=== PATIENT | male | born 1970 | race Caucasian/White ===

== ENCOUNTER 2021-02-27 11:07 | Observation (INO) | payer MEDICARE, OTHER ==
[~2021-02-27] VITALS: Ht 177.8 cm; Wt 79.4 kg
[2021-02-27 13:35] LABS: HEMOGLOBIN 11.1 gm/dl (14.0-17.5); RED BLOOD COUNT 3.57 M/UL (4.20-5.50); WHITE BLOOD COUNT 5.4 K/UL (4.5-11.0)
[2021-02-27] MEDS ORDERED: FOLIC ACID 1 MG1 MG PO (19:09)
[2021-02-27] MEDS ORDERED: KLONOPIN TAB 00.5 MG PO (19:09)
[2021-02-27] MEDS ORDERED: PROBIOTIC1 EAC2 PO (19:10)
[2021-02-27] MEDS ORDERED: BYDUREON INJ (19:12)
[2021-02-27] MEDS ORDERED: MAG-OX 400 TAB400 MG PO (19:12)
[2021-02-27] MEDS ORDERED: MINOCIN CAPSULE50 MG PO (19:13)
[2021-02-27] MEDS ORDERED: TAB-A-VITE TA400 MC1 PO (19:14)
[2021-02-27] MEDS ORDERED: CRESTOR10 MG PO (19:14)
[2021-02-27] MEDS ORDERED: TOVIAZ4 MG PO (19:15)
[2021-02-27] MEDS ORDERED: DOCUSATE SODIU100 MG PO (19:15)
[2021-02-27] MEDS ORDERED: AMLODIPINE BESY10 MG PO (19:15)
[2021-02-27] MEDS ORDERED: GLUCOPHAGE500 MG PO (19:16)
[2021-02-27] MEDS ORDERED: BENICAR40 MG PO (19:17)
[2021-02-27] MEDS ORDERED: ZETIA10 MG PO (19:18)
[2021-02-27] MEDS ORDERED: SYNTHROID100 MCG PO (19:18)
[2021-02-27] MEDS ORDERED: BENZTROPINE ME0.5 MG PO (19:18)
[2021-02-27] MEDS ORDERED: RISPERDAL2 MG PO (19:19)
[2021-02-27] MEDS ORDERED: NOVOLOG FL100 UNIT/1 INJ (19:19)
[2021-02-27] MEDS ORDERED: FERROUS SULFAT325 M2 PO (19:20)
[2021-02-27] MEDS ORDERED: CYANOCOBAL1000 MCG/1 SC (19:20)
[2021-02-28] MEDS ORDERED: KLONOPIN0.5 MG PO (04:50)
[2021-02-28 05:14] LABS: HEMOGLOBIN 9.5 gm/dl (14.0-17.5)
[2021-02-28 05:23] LABS: RED BLOOD COUNT 3.03 M/UL (4.20-5.50); WHITE BLOOD COUNT 3.3 K/UL (4.5-11.0)
[2021-02-28 05:41] LABS: BUN/CREATININE RATIO 34 (0-10)
== END 2021-02-28 14:20 | disposition home or self-care (01) ==
LOC: ER1 11:07 → CDU 18:05 → M/S 18:05 → EDBD 02-28 14:20
PROVIDERS: Physician Assistant Medical; ADMIT Internal Medicine
DX: I95.9 Hypotension, unspecified (principal); N17.9 Acute kidney failure, unspecified; E86.0 Dehydration; I10 Essential (primary) hypertension; E11.9 Type 2 diabetes mellitus without complications; Z20.822 Contact with and (suspected) exposure to COVID-19; F41.9 Anxiety disorder, unspecified; E03.9 Hypothyroidism, unspecified; D64.9 Anemia, unspecified; E78.5 Hyperlipidemia, unspecified; E87.2 Acidosis; G31.84 Mild cognitive impairment of uncertain or unknown etiology
CPT/HCPCS: 36415; 71045; 80048; 80053; 81001; 82550; 82553; 83605; 83874; 84439; 84443; 84484; 85025; 87040; 99285; G0378; J3420; J7030; U0002

== ENCOUNTER 2021-03-20 19:39 | Emergency (ER) | payer MEDICARE, OTHER ==
[~2021-03-20 19:39] MED LIST: AMLODIPINE BESY10 MG PO; BENICAR40 MG PO; BENZTROPINE ME0.5 MG PO; BYDUREON INJ; CRESTOR10 MG PO; CYANOCOBAL1000 MCG/1 SC; DOCUSATE SODIU100 MG PO; FERROUS SULFAT325 M2 PO; FOLIC ACID 1 MG1 MG PO; GLUCOPHAGE500 MG PO; KLONOPIN TAB 00.5 MG PO; KLONOPIN0.5 MG PO; MAG-OX 400 TAB400 MG PO; MINOCIN CAPSULE50 MG PO; NOVOLOG FL100 UNIT/1 INJ; PROBIOTIC1 EAC2 PO; RISPERDAL2 MG PO; SYNTHROID100 MCG PO; TAB-A-VITE TA400 MC1 PO; TOVIAZ4 MG PO; ZETIA10 MG PO
[2021-03-20 22:38] LABS: HEMOGLOBIN 10.1 gm/dl (14.0-17.5); RED BLOOD COUNT 3.24 M/UL (4.20-5.50); WHITE BLOOD COUNT 5.1 K/UL (4.5-11.0)
== END 2021-03-21 03:50 | disposition home or self-care (01) ==
LOC: EDBD 19:39 → ER1 19:39
PROVIDERS: Physician Assistant; Student in an Organized Health Care Education/Training Program
DX: E86.0 Dehydration (principal); E11.9 Type 2 diabetes mellitus without complications
CPT/HCPCS: 80053; 81001; 82550; 82553; 83605; 83735; 83874; 84100; 84439; 84443; 84484; 85025; 99283

== ENCOUNTER 2021-06-16 16:52 | Emergency (ER) | payer MEDICARE, OTHER ==
[2021-06-16 17:35] LABS: HEMOGLOBIN 9.9 gm/dl (14.0-17.5); RED BLOOD COUNT 3.23 M/UL (4.20-5.50); WHITE BLOOD COUNT 3.9 K/UL (4.5-11.0)
[2021-06-16 17:55] LABS: BUN/CREATININE RATIO 32 (0-10)
== END 2021-06-16 22:22 | disposition home or self-care (01) ==
LOC: ER1 16:52
PROVIDERS: Emergency Medicine
DX: N13.30 Unspecified hydronephrosis (principal); D61.818 Other pancytopenia; R10.9 Unspecified abdominal pain; E11.9 Type 2 diabetes mellitus without complications; E78.5 Hyperlipidemia, unspecified; E07.9 Disorder of thyroid, unspecified
CPT/HCPCS: 70450; 80053; 82550; 82553; 83690; 83874; 84484; 85025; 99284; J7030; Q9967

== ENCOUNTER → 2021-06-26 | Outpatient (CLI) | payer MEDICARE, OTHER | LOC: RAD 09:59 | DX: Z03.818 Encounter for observation for suspected exposure to other biological agents ruled out (principal) | CPT/HCPCS: 71046 ==